=== PATIENT | male | born 1950 | race Caucasian/White ===

== ENCOUNTER 2024-12-10 07:33 | Day surgery (SDC) | payer MEDICARE, BC, SELFPAY ==
[2024-12-10 08:01] VITALS: BP 133/86; PULSE 55; RESP 20; TEMP 36.1; O2SAT 98; BMI 27.9
[2024-12-10 08:44] VITALS: O2SAT 98
--- NOTE | 2024-12-10 08:50 | EXP.HP ---
History of Present Illness *Admission Date: 12/10/24 *Reason for visit:: Screening for colon cancer *History of present illness: Mr. Gregorio is a 74-year-old gentleman who is here for screening/surveillance colonoscopy. His last colonoscopy was 10 years ago and was normal. The examination is deemed medically necessary for screening colonoscopy. The patient has been seen, interviewed and examined prior to the procedure by both myself and the anesthesia provider. [facility] Disclaimer: The information contained in this section may have been updated after the patient was seen, as this information can be updated by other users. Medical History (Updated 12/10/24 @ 08:51 by Jcarlos Lovett II, MD) Congenital dilatation of inferior vena cava DVT (deep venous thrombosis) Hx of nephrolithotomy with removal of calculi Charcot-Donna disease Hypertension Atrial fibrillation Surgical History History of toe surgery History of back surgery History of angioplasty History of hernia repair Family History Other COPD (chronic obstructive pulmonary disease) Family history of abdominal aortic aneurysm Family history of acute heart failure Family history of bladder cancer Family history of cardiomegaly Family history of stroke Social History Smoking Status: Never smoker alcohol intake: former current occupational status: retired Travel in the last 8 weeks?: None caffeine: No Have you lived/traveled outside [place] in past 30 days?: No Contact w/someone who lives/traveled outside US past 30 days?: No Exposure to someone with infectious disease in past 14 days?: No Do you have a fever (greater than 100.4 F or 38 C)?: No Have you tested positive for COVID-19?: No Exposed to someone with COVID-19 in past 14 days?: No Do you have a sore throat?: No Do you have a cough?: No Do you have any weakness?: No Are you experiencing any nausea/vomitting?: No Do you have any diarrhea?: No Are you experiencing any unusual bleeding?: No Do you have any muscle aches/pain?: No Do you have any abdominal pain?: No Are you experiencing loss of taste or smell?: No Review of Systems Review of Systems Review of systems (narrative): Negative *Cardiovascular Comments: Negative *Gastrointestinal Comments: Negative *Genitourinary Comments: Negative *Musculoskeletal Comments: Negative *Neurologic Comments: Negative Meds Home Medications and Allergies Home Medications ?Medication ?Instructions ?Recorded ?Confirmed ?Type sodium,potassium,mag sulfates 17.5 See Rx Instructions PO .COMPLEX 11/26/24 12/07/24 Rx gram-3.13 gram-1.6 gram oral soln #354 mL (Suprep Bowel Prep Kit) amlodipine 5 mg tablet 5 mg PO DAILY 12/07/24 12/07/24 History apixaban 5 mg tablet (Eliquis) 5 mg PO BID 12/07/24 12/07/24 History latanoprost 0.005 % eye drops 1 drp Eye-Both DAILY 12/07/24 12/07/24 History psyllium husk (sweetleaf) 3.5 gram 3.5 g PO DAILY 12/07/24 12/07/24 History oral powder packet (Konsyl Daily Fiber (stevia)) timolol maleate 0.5 % eye drops 1 drp ophthalmic (eye) DAILY 12/07/24 12/07/24 History New Prescriptions to Start Prescriptions: Allergies Allergy/AdvReac Type Severity Reaction Status Date / Time No Known Allergies Allergy Verified 12/07/24 14:06 Exam Data for Last 24 hours Vital signs and Labs for Last 24 Hours: Temp Pulse Resp BP Pulse Ox O2 Del Method 97.0 F L 55 L 20 133/86 98 Room Air 12/10/24 08:01 12/10/24 08:01 12/10/24 08:01 12/10/24 08:01 12/10/24 08:01 12/10/24 08:01 I & O for Last 24 hours: Intake & Output 12/07/24 12/08/24 12/09/24 12/10/24 23:59 23:59 23:59 23:59 Weight 242 lb *Routine HEENT Exam Head: Present normocephalic Eye: Present EOMI and PERRL ENT: Present mucous membranes moist *Routine Neck Exam Neck: Present supple *Routine Respiratory Exam Respiratory: Present CTA bilaterally *Routine Cardiovascular Exam Cardiovascular: Present RRR *Routine Abdominal Exam Abdominal: Present soft and normoactive bowel sounds; Absent tenderness *Routine Rectal Exam Rectal:: deferred *Routine Genitalia Exam Genitalia:: deferred *Routine Extremities Exam Extremities: Absent cyanosis, clubbing or edema *Routine Skin Exam Skin: Present warm; Absent rash *Routine Neurological Exam Neurological: Present alert and oriented X3 Assessment and Plan *Assessment and plan (1) Screening for colon cancer: Status: Acute Category: Medical Code(s): Z12.11 - Encounter for screening for malignant neoplasm of colon Plan A/P: 1. Screening for colon cancer is the preprocedural diagnosis. The patient's last colonoscopy was 10 years ago. The patient will be anesthetized/sedated using MAC sedation. The patient has been seen and examined. Cardiac and lung assessment prior to the examination is stable. Proceed with planned screening colonoscopy.
--- NOTE | 2024-12-10 08:51 | P.PCN_ITS ---
[facility] Procedure Note Date: 12/10/24 Time: 09:06 Procedure Note:: Colonoscopy Procedure Report: Colonoscopy with cold snare polypectomy Endoscopist: Jcarlos Lovett II, MD Referring physician: Caleb Escamilla MD, [address] , [address], [place] [address] Date of Procedure: December 10, 2024 Equipment: Olympus 190 variable stiffness pediatric colonoscope Sedation: MAC sedation Indication: Mr. Gregorio is a 74-year-old gentleman who is here for screening/surveillance colonoscopy. His last colonoscopy in 2014 (10 years ago) was normal. He reports no abdominal pain, weight loss, change in his bowel habits or rectal bleeding. He reports no family history of colon cancer. His father had bladder cancer. Procedure: Prior to the procedure, a history and physical exam was performed, and patient's medications and allergies were reviewed. The risks, benefits and alternatives of the sedation and procedure were discussed with the patient. All questions were answered and informed consent was obtained. The patient was brought to the procedure room. Patient identification and proposed procedure were verified by the physician and the nurse. The patient was placed in a left lateral decubitus position and the scope was passed under direct vision. Throughout the procedure, the patient's blood pressure, pulse, and oxygen saturations were monitored continuously. The colonoscopy was accomplished without difficulty. The patient tolerated the procedure well. Findings: On digital rectal examination there was normal rectal tone. There were no external hemorrhoids. The prostate was 2+, smooth, soft, symmetric without nodules. The colonoscope was introduced through the anal canal to the rectum and advanced to the cecum. The ileocecal valve and appendiceal orifice were identified. The scope was advanced a short distance into the ileum which appeared grossly normal. The scope was then withdrawn into the colon. The cecum, ascending, transverse and descending colon were grossly normal. There were 2 diminutive polyps in the sigmoid colon (4 and 5 mm)). These were both removed via cold snare polypectomy. The rectum itself was normal. There were no other mucosal abnormalities identified. Upon retroflexion within the rectum there were grade 2 internal hemorrhoids. The preparation was excellent throughout with [place] Preparation Score of 9. The cecal time was 12 minutes. Impression: 1. Diminutive sigmoid colon polyps x 2 2. Grade 2 internal hemorrhoids Plan: I will follow-up the polyp histology. I do not feel that the patient will require any further preventive/screening colonoscopy. I would encourage psyllium bulking fiber supplementation on a maintenance basis.
--- NOTE | 2024-12-10 09:03 | EXP.ANES.CKL ---
[facility] Disclaimer: The information contained in this section may have been updated after the patient was seen, as this information can be updated by other users. Medical History (Updated 12/10/24 @ 08:51 by Jcarlos Lovett II, MD) Congenital dilatation of inferior vena cava DVT (deep venous thrombosis) Hx of nephrolithotomy with removal of calculi Charcot-Donna disease Hypertension Atrial fibrillation Surgical History History of toe surgery History of back surgery History of angioplasty History of hernia repair Family History Other COPD (chronic obstructive pulmonary disease) Family history of abdominal aortic aneurysm Family history of acute heart failure Family history of bladder cancer Family history of cardiomegaly Family history of stroke Social History Smoking Status: Never smoker alcohol intake: former substance use type: denies use current occupational status: retired Travel in the last 8 weeks?: None caffeine: No [facility] Anesthesia Checklist Patient Identification Patient Identification: Verbal (Name & ) Structural Data Admitted From: Home Planned Operative Procedure/s: colonoscopy Consent for Planned Operative Procedure(s) Verified: Yes NPO Status Verified Time NPO: 00:00 Airway Assessment Mallampati Score:: Class II C-Spine Mobility Assessed: Yes TMJ Mobility Assessed: Yes Dentition: Partials Neurological Assessment Level of Consciousness: Awake, Alert and Appropriate Anesthesia Plan Anesthesia Risk discussed: Yes Anesthesia Plan: Verified ASA Class: II Anesthesia Type: MAC
[2024-12-10 09:10] VITALS: BP 123/81; PULSE 53; RESP 16; TEMP 36.1; O2SAT 98
[2024-12-10 09:20] VITALS: BP 104/76; PULSE 56; RESP 16; O2SAT 98
[2024-12-10 09:30] VITALS: BP 110/79; PULSE 59; RESP 16; O2SAT 100
[2024-12-10 09:40] VITALS: BP 105/49; PULSE 68; RESP 16; O2SAT 100
== END 2024-12-10 09:45 | disposition home or self-care (01) ==
PROVIDERS: PCP Internal Medicine; Visit Provider Internal Medicine Gastroenterology
PROC: 0DJD8ZZ Inspection of Lower Intestinal Tract, Via Natural or Artificial Opening Endoscopic (ICD-10-PCS; CPT 45378; principal; 2024-12-10 09:00)
DX: Z12.11 Encounter for screening for malignant neoplasm of colon (principal); K63.5 Polyp of colon; K64.1 Second degree hemorrhoids
CPT/HCPCS: 45385